=== PATIENT | male | born 1955 | race Caucasian/White ===

== ENCOUNTER → 2024-07-20 10:22 | Outpatient (BNVA) | payer MEDICARE, SELFPAY | PROVIDERS: Family Provider Nurse Practitioner Family; PCP Nurse Practitioner Family; Visit Provider Podiatrist Foot & Ankle Surgery | DX: Q82.8 Other specified congenital malformations of skin (principal); L60.3 Nail dystrophy | CPT/HCPCS: 17110; 99203 ==

== ENCOUNTER → 2024-08-10 10:31 | Outpatient (BNVA) | payer MEDICARE, SELFPAY | PROVIDERS: Family Provider Nurse Practitioner Family; PCP Nurse Practitioner Family; Visit Provider Podiatrist Foot & Ankle Surgery | DX: Q82.8 Other specified congenital malformations of skin (principal); L60.3 Nail dystrophy | CPT/HCPCS: 99213 ==